=== PATIENT | male | born 1985 | race Caucasian/White ===

== ENCOUNTER 2018-09-21 22:48 | Emergency (ER) | payer BC ==
[~2018-09-21] VITALS: Ht 185.4 cm; Wt 65.9 kg
[2018-09-21 22:51] VITALS: Ht 185.4 cm; Wt 65.9 kg
[2018-09-21] MEDS ORDERED: WELLBUTRIN SR150 MG PO (22:51)
[2018-09-22] MEDS ORDERED: TORADOL10 MG PO (00:46)
[2018-09-22 01:45] VITALS: BP 151/76
== END 2018-09-22 00:55 | disposition home or self-care (01) ==
LOC: D.ER 22:48
DX: S01.311A Laceration without foreign body of right ear, initial encounter (principal); W10.9XXA Fall (on) (from) unspecified stairs and steps, initial encounter; Y93.89 Activity, other specified; Y92.019 Unspecified place in single-family (private) house as the place of occurrence of the external cause; B19.20 Unspecified viral hepatitis C without hepatic coma; F17.200 Nicotine dependence, unspecified, uncomplicated

== ENCOUNTER 2018-12-01 20:52 | Emergency (ER) | payer MEDICAID ==
[~2018-12-01] VITALS: Ht 185.4 cm; Wt 65.9 kg
[~2018-12-01 20:52] MED LIST: TORADOL10 MG PO; WELLBUTRIN SR150 MG PO
[2018-12-01 21:05] VITALS: Ht 185.4 cm; Wt 65.9 kg
[2018-12-01 22:26] VITALS: BP 126/73
== END 2018-12-01 22:26 | disposition home or self-care (01) ==
LOC: D.ER 20:52
DX: F41.9 Anxiety disorder, unspecified (principal); F32.9 Major depressive disorder, single episode, unspecified; Z86.19 Personal history of other infectious and parasitic diseases

== ENCOUNTER 2018-12-02 16:23 | Emergency (ER) | payer MEDICAID ==
[~2018-12-02] VITALS: Ht 185.4 cm; Wt 65.9 kg
[2018-12-02 16:27] VITALS: BP 146/99; Ht 185.4 cm; Wt 65.9 kg
[2018-12-02 17:01] LABS: BASOPHILS 0.5 % (0-2); EOSINOPHILS 1.4 % (0-7); HEMATOCRIT 48.9 % (42.0-54.0); HEMOGLOBIN 17.1 g/dL (13.5-17.5); IMMATURE GRANULOCYTES 0.3 % (0-5); LYMPHOCYTES 33.8 % (15-50); MCV 85.8 fL (80.0-100.0); MEAN PLATELET VOLUME 10.4 fL (7.4-10.4); MONOCYTES 10.2 % (2-11); NEUTROPHILS 53.8 % (40-80); PLATELET COUNT 251 10x3/uL (130-400); RDW 12.2 % (11.5-14.5); WBC 7.9 10x3/uL (4.8-10.8)
[2018-12-02 17:05] LABS: ALBUMIN 4.5 g/dL (3.4-5.0); ALKALINE PHOSPHATASE 86 U/L (46-116); ALT (SGPT) 26 U/L (10-68); BILIRUBIN - TOTAL 0.84 mg/dL (0.2-1.3); CALC OSMOLALITY 277 mosm/kg (275-300); CALCIUM 9.5 mg/dL (8.5-10.1); CARBON DIOXIDE 23.3 mmol/L (21.0-32.0); CHLORIDE - SERUM 105 mmol/L (98-107); CREATININE - SERUM 1.3 mg/dL (0.6-1.3); GLUCOSE 75 mg/dL (74-106); POTASSIUM - SERUM 3.9 mmol/L (3.5-5.1); PROTEIN - SERUM 8.4 g/dL (6.4-8.2); SODIUM 139 mmol/L (136-145); UREA NITROGEN 15 mg/dL (7-18); eGFR NON AFRICAN AMERICAN 68 mL/min (90-120)
[2018-12-02 17:09] LABS: TROPONIN-I < 0.017 ng/mL (0.000-0.060)
== END 2018-12-02 22:16 | disposition home or self-care (01) ==
LOC: D.ER 16:23
PROVIDERS: Emergency Medicine
DX: G24.9 Dystonia, unspecified (principal)

== ENCOUNTER 2019-11-08 00:35 | Emergency (ER) | payer OTHER ==
[~2019-11-08] VITALS: Ht 185.4 cm; Wt 61.4 kg
[2019-11-08 00:38] VITALS: Ht 185.4 cm; Wt 61.4 kg
[2019-11-08 00:53] LABS: BASOPHILS 0.6 % (0-2); EOSINOPHILS 1.3 % (0-7); HEMATOCRIT 45.1 % (42.0-54.0); HEMOGLOBIN 15.4 g/dL (13.5-17.5); IMMATURE GRANULOCYTES 0.1 % (0-5); LYMPHOCYTES 31.9 % (15-50); MCH 30.2 pg (26.0-34.0); MCHC 34.1 g/dL (31.0-37.0); MCV 88.4 fL (80.0-100.0); MEAN PLATELET VOLUME 9.8 fL (7.4-10.4); MONOCYTES 12.9 % (2-11); NEUTROPHILS 53.2 % (40-80); PLATELET COUNT 248 10x3/uL (130-400); RDW 12.1 % (11.5-14.5)
[2019-11-08 00:54] LABS: APPEARANCE CLEAR (CLEAR); BILIRUBIN NEGATIVE (NEGATIVE); COLOR YELLOW (YELLOW); GLUCOSE NEGATIVE (NEGATIVE); KETONE SMALL mg/dL (NEGATIVE); NITRITE NEGATIVE (NEGATIVE); PROTEIN NEGATIVE (NEGATIVE); SPECIFIC GRAVITY 1.015 (1.005-1.020); UROBILINOGEN NORMAL (NORMAL)
[2019-11-08 01:01] LABS: UDS - AMPHET POSITIVE QUAL (NEGATIVE); UDS - BARB NEGATIVE QUAL (NEGATIVE); UDS - BENZO POSITIVE QUAL (NEGATIVE); UDS - COCAINE NEGATIVE QUAL (NEGATIVE); UDS - OPIATE NEGATIVE QUAL (NEGATIVE); UDS - PCP NEGATIVE QUAL (NEGATIVE); UDS - THC NEGATIVE QUAL (NEGATIVE)
[2019-11-08 01:23] LABS: ANION GAP 12.2 mmol/L (8-16); CALCIUM 8.9 mg/dL (8.5-10.1); CARBON DIOXIDE 29.2 mmol/L (21.0-32.0); CREATININE - SERUM 1.3 mg/dL (0.6-1.3); POTASSIUM - SERUM 3.4 mmol/L (3.5-5.1)
[2019-11-08 01:29] LABS: BILIRUBIN - TOTAL 0.56 mg/dL (0.2-1.3); MAGNESIUM - SERUM 2.4 mg/dL (1.8-2.4); PROTEIN - SERUM 7.5 g/dL (6.4-8.2)
--- NOTE | 2019-11-08 01:57 | NUR ---
DR GRANDE NOTIFIED AND SITTER ORDERED, SITTER AT BEDSIDE, NOTIFIED CHARGE NURSE AND ATTENDING IN REGARDS TO ASSESSMENT FINDINGS. RESOURCES GIVEN TO PT AND SAFETY PLAN INITIATED.
[2019-11-08 04:32] VITALS: BP 132/89
== END 2019-11-08 04:55 ==
LOC: D.ER 00:35
PROVIDERS: Emergency Medicine
DX: T14.91XA Suicide attempt, initial encounter (principal); F19.10 Other psychoactive substance abuse, uncomplicated; E87.6 Hypokalemia; F32.9 Major depressive disorder, single episode, unspecified; X78.9XXA Intentional self-harm by unspecified sharp object, initial encounter; Y93.9 Activity, unspecified; Y92.9 Unspecified place or not applicable

== ENCOUNTER 2020-05-04 07:43 | Emergency (ER) | payer OTHER ==
[~2020-05-04] VITALS: Ht 185.4 cm; Wt 65.9 kg
[2020-05-04 07:53] VITALS: BP 111/81; Ht 185.4 cm; Wt 65.9 kg
[2020-05-04] MEDS ORDERED: PAXIL40 MG PO (07:55)
[2020-05-04] MEDS ORDERED: SEROQUEL100 MG PO (07:55)
[2020-05-04] MEDS ORDERED: ERYTHROMYCIN OPT1 GM LEFT EYE (08:21)
== END 2020-05-04 08:25 | disposition home or self-care (01) ==
LOC: D.ER 07:43
DX: S05.02XA Injury of conjunctiva and corneal abrasion without foreign body, left eye, initial encounter (principal); W22.8XXA Striking against or struck by other objects, initial encounter; Y93.9 Activity, unspecified; Y92.9 Unspecified place or not applicable

== ENCOUNTER → 2021-02-08 13:31 | Outpatient (CLI) | payer BC ==
[2020-05-04 07:53] VITALS: BMI 19.1
--- NOTE | ~2021-02-08 | ST ---
PATIENT:JHON VALDES MEDICAL RECORD: [id number] SEX: M LOCATION:[facility] ORDER #: ADMISSION DATE: 02/08/21 AGE OF PATIENT: 35 REFERRING PHYSICIAN: INTERPRETING PHYSICIAN: PAM FULLER MD DATE OF SERVICE: 02/08/2021 PROCEDURE: Treadmill stress test. Baseline ECG is normal. Exercised for 10 minutes on Eriberto protocol. Maximum heart rate 166 beats per minute greater than 85% max predicted. No ST changes ischemia. No symptoms of ischemia. Normal blood pressure to exercise. No arrhythmias noted. Good exercise tolerance for age. TRANSINT:[id number] Voice Confirmation ID: [id number] DOCUMENT ID: [id number] PAM FULLER MD CC: [id number] DICTATION DATE: 02/09/21 1529 WASTEWATER ENGINEER: 02/09/21 2157 [facility] CLI 02/08/21 [id number] [place] [address]
--- NOTE | ~2021-02-08 | EC ---
PATIENT:JHON VALDES DATE OF SERVICE: 02/08/21 SEX: M MEDICAL RECORD: [id number] DATE OF : [birth year] LOCATION:[facility] AGE OF PATIENT: 35 ADMISSION DATE: 02/08/21 REFERRING PHYSICIAN: INTERPRETING PHYSICIAN: PAM FULLER MD ECHOCARDIOGRAM REPORT ECHO CHARGES 4 ECHO COMPLETE Date: 02/08/21 CLINICAL DIAGNOSIS: HEART MURMUR/PALPITATIONS ECHOCARDIOGRAPHIC MEASUREMENTS (adult normal given) AC root (d.<3.7cm) 3.2 cm LV Septum d (<1.2 cm> 1.1 cm Valve Excursion 1.6 cm LV Septum (systole) 1.2 cm Left Atria (s.<4.0cm> 3.3 cm LVPW d(<1.2cm) 1.2 cm RV (d.<2.3cm) 3.5 cm LVPW (sytole) 1.6 cm LV diastole(<5.6CM) 4.4 cm MV E-F(>70mm/sec) cm LV systole 3.1 cm LVOT Diameter 1.9 cm MV exc.(>10mm) 1.1 cm Est.ejection fraction (50-75%) % DOPPLER: LVIT cm/sec A 48.0 cm/sec E 104.0 cm/sec LA cm/sec RVSP 28 mmHg LVOT 97 cm/sec AOP1/2T m/s Asc. Ao 114 cm/sec RVOT 74 cm/sec RA cm/sec PA 99 cm/sec AV Gradient Peak 5.23 mmHg AV Mean 2.76 mmHg AV Area 2.0 cm MV Gradient Peak 5.60 mmHg MV Mean 1.69 mmHg MV Area cm COMMENTS: Rigging Foreman: 2 CRIS MILLIGAN Lead Front End Developer: 3 Dr. Hernandez TAPE# PACS Pericardial Effusion N DATE OF SERVICE: Adequate 2D, color-flow imaging, spectral Doppler, and M-Mode FINDINGS: No LVH. LV internal dimensions are normal. Wall motion is normal. EF is greater than or equal to 55%. Aortic valve is tricuspid. No evidence of stenosis by Doppler interrogation. Left atrium is normal. Mitral valve appears normal. Trivial MR. Right-sided chambers are grossly normal. Trivial TR. TRANSINT:[id number] Voice Confirmation ID: [id number] DOCUMENT ID: [id number] ECHOCARDIOGRAM REPORT [id number] JHON VALDES GREGORY A MD CC: [id number] DICTATION DATE: 02/09/21 1526 NYLON MACHINE OPERATOR: 02/09/21 1531 [facility] CLI 02/08/21 [address] [id number] [place] [id number]
[~2021-02-08 13:31] MED LIST changes: +ERYTHROMYCIN OPT1 GM LEFT EYE; +PAXIL40 MG PO; +SEROQUEL100 MG PO
== END | disposition home or self-care (01) ==
LOC: D.HCCARDIO 13:31
PROVIDERS: ATTEND Internal Medicine Interventional Cardiology
DX: R01.1 Cardiac murmur, unspecified (principal); I49.9 Cardiac arrhythmia, unspecified